=== PATIENT | female | born 1970 | race Caucasian/White ===

== ENCOUNTER 2019-08-23 08:47 | Outpatient (CLI) | payer OTHER, SELFPAY ==
--- NOTE | 2019-08-23 09:20 | NEURO_ITS ---
PATIENT NUMBER: [id number] DATE OF SERVICE: 08/23/2019 IMPRESSION: Patient complains of numbness and jumping of muscles all over. # No evidence of motor sensory neuropathy # Needle/EMG exam revealed no fasciculation, myotonia, or fibrillations. # Clinical correlation recommended. Nerve Conduction Studies Anti Sensory Summary Table Stim Site NR Peak (ms) P-T Amp (?V) Site1 Site2 Delta-P (ms) Dist (cm) Gildardo (m/s) Left Median Anti Sensory (2-3nd Digit) Wrist 2.7 133.0 Wrist 2-3nd Digit 2.7 14.0 52 Wrist 2.8 129.0 Wrist 2-3nd Digit 2.7 14.0 52 Right Median Anti Sensory (2-3nd Digit) Wrist 2.7 126.1 Wrist 2-3nd Digit 2.7 14.0 52 Wrist 2.7 132.6 Wrist 2-3nd Digit 2.7 14.0 52 Left Radial Anti Sensory (Base 1st Digit) Wrist 1.8 36.2 Wrist Base 1st Digit 1.8 0.0 Right Radial Anti Sensory (Base 1st Digit) Wrist 1.8 24.9 Wrist Base 1st Digit 1.8 0.0 Left Sup Fibular Anti Sensory (Ant Lat Mall) 14 cm 3.3 5.7 14 cm Ant Lat Mall 3.3 16.0 48 Right Sup Fibular Anti Sensory (Ant Lat Mall) 14 cm 3.1 24.4 14 cm Ant Lat Mall 3.1 16.0 52 Left Sural Anti Sensory (Lat Mall) Calf 3.8 23.9 Calf Lat Mall 3.8 16.0 42 Right Sural Anti Sensory (Lat Mall) Calf 3.9 8.4 Calf Lat Mall 3.9 16.0 41 Left Ulnar Anti Sensory (5th Digit) Wrist 2.6 129.3 Wrist 5th Digit 2.6 14.0 54 Right Ulnar Anti Sensory (5th Digit) Wrist 2.3 102.1 Wrist 5th Digit 2.3 14.0 61 Motor Summary Table Stim Site NR Onset (ms) O-P Amp (mV) Site1 Site2 Delta-0 (ms) Dist (cm) Gildardo (m/s) Left Median Motor (Abd Poll Brev) Wrist 3.2 4.3 Elbow Wrist 4.1 25.0 61 Elbow 7.3 4.4 Right Median Motor (Abd Poll Brev) Wrist 3.2 4.9 Elbow Wrist 4.1 26.0 63 Elbow 7.3 1.5 Left Peroneal Motor (Vastus Med) Ankle 4.5 8.1 Popit Ankle 7.2 36.0 50 Popit 11.7 7.8 Right Peroneal Motor (Vastus Med) Ankle 4.2 5.3 Popit Ankle 6.8 37.0 54 Popit 11.0 4.5 Left Tibial Motor (Abd Lopes Brev) Ankle 4.3 13.2 Knee Ankle 9.8 40.0 41 Knee 14.1 6.3 Right Tibial Motor (Abd Lopes Brev) Ankle 5.0 11.2 Knee Ankle 8.9 40.0 45 Knee 13.9 7.5 Left Ulnar Motor (Abd Dig Minimi) Wrist 2.2 11.1 A Elbow Wrist 4.4 26.0 59 A Elbow 6.6 9.9 Right Ulnar Motor (Abd Dig Minimi) Wrist 2.7 10.9 A Elbow Wrist 4.3 26.0 60 A Elbow 7.0 11.1 F Wave Studies NR F-Lat (ms) L-R F-Lat (ms) Left Median (Mrkrs) (Abd Poll Brev) 27.30 0.90 Right Median (Mrkrs) (Abd Poll Brev) 26.40 0.90 Left Peroneal (Mrkrs) (EDB) 49.88 4.41 Right Peroneal (Mrkrs) (EDB) 54.30 4.41 Left Tibial (Mrkrs) (Abd Hallucis) 49.15 1.91 Right Tibial (Mrkrs) (Abd Hallucis) 51.06 1.91 Left Ulnar (Mrkrs) (Abd Dig Min) 25.94 2.38 Right Ulnar (Mrkrs) (Abd Dig Min) 23.56 2.38 EMG Side Muscle Nerve Root Ins Act Fibs Amp Dur Recrt Comment Right 1stDorInt Ulnar C8-T1 Nml Nml Nml Nml Nml Right Ext Indicis Radial (Post Int) C7-8 Nml Nml Nml Nml Nml Right Ext Digitorum Radial (Post Int) C7-8 Nml Nml Nml Nml Nml Right BrachioRad Radial C5-6 Nml Nml Nml Nml Nml Right PronatorTeres Median C6-7 Nml Nml Nml Nml Nml Right Abd Poll Brev Median C8-T1 Nml Nml Nml Nml Nml Right AntTib
== END 2019-08-23 08:48 | disposition home or self-care (01) ==
PROVIDERS: PCP Family Medicine; Visit Provider Nurse Practitioner Family
DX: R20.2 Paresthesia of skin (principal)
CPT/HCPCS: 95886; 95913

== ENCOUNTER 2024-04-24 17:34 | Emergency (ER) | payer OTHER, SELFPAY ==
[2024-04-24 17:43] VITALS: BP 120/83; PULSE 75; RESP 16; TEMP 36.7; O2SAT 100
--- NOTE | 2024-04-24 17:48 | ED.SKABFB ---
HPI - Skin/Abscess/Foreign Bdy General Chief complaint: Skin/Abscess/Foreign Body Stated complaint: Bite Left Leg Source: patient Mode of arrival: ambulatory Limitations: no limitations History of Present Illness HPI narrative: [age] year old female presented for complaint of an insect bite to the left lower leg 3 days ago. She states that the onset it was red and warm which has slowly improved since then. She has taken Benadryl and Tylenol for symptoms. Today she reports the area of redness is larger, and has pain radiating up towards the knee and down to the foot in line with the bite. Related Data Home Medications Medication Instructions Recorded Confirmed fexofenadine 180 mg tablet 180 mg PO DAILY 06/28/19 12/29/23 (Adriane Allergy) acyclovir 400 mg tablet 800 mg PO Q8H 01/23/20 12/29/23 montelukast 10 mg tablet 10 mg PO DAILY 09/01/22 12/29/23 Allergies Allergy/AdvReac Type Severity Reaction Status Date / Time adhesive tape Allergy Rash Verified 12/29/23 15:03 celecoxib [From Celebrex] AdvReac Mild Dizziness Verified 12/29/23 15:03 Review of Systems Review of Systems: CONSTITUTIONAL: Denies body aches, fever, chills, or sweats. EYES: Denies visual changes, redness, or discharge. ENT: Denies rhinorrhea, congestion CARDIOVASCULAR: Denies chest pain, palpitations, or edema. RESPIRATORY: Denies cough or dyspnea. GASTROINTESTINAL: Denies abdominal pain, nausea, vomiting, or diarrhea. SKIN: per HPI MUSCULOSKELETAL: Denies back pain, joint pain, or myalgia. NEUROLOGIC: Denies headache, numbness, tingling, or weakness. 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, removed 2018 Concussion (~08/2019) Family history of hyperlipidemia Fibromyalgia Hyperlipidemia IBS (irritable bowel syndrome) Irritability Lower back pain Migraine Prediabetes Sacral pain (~02/2019) Skin infection Tingling in extremities Vitamin D deficiency Surgical History Surgical History H/O hernia repair (~2012) umbilical hernia repair x3 H/O tubal ligation (~2004) H/O vaginal hysterectomy (~2005) History of corneal transplant (~2003) History of laparoscopy (~1995) endometriosis Hx of cholecystectomy (~2010) S/P urological surgery (~2017) Family History Family History Sibling Family history of hypercholesterolemia Diabetes mellitus Mother No problems noted. 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 Please see nursing chart for further information. There is no relevant family history pertinent to the presenting complaint Exam Narrative: GENERAL: Well-appearing ENT: Mucous membranes moist. Oropharynx without edema, erythema or lesions. CHEST: Clear to auscultation. HEART: Regular rate and rhythm. SKIN: Warm, dry. Left lateral lower leg with 3cm diameter area of mild erythema, pinpoint center of erythema. Mildly tender with palpation .No fluctuance or drainage, no streaking or warmth. NEURO: Alert and oriented x3. Course Course Emergency Course: Patient is aware of diagnosis, understands and agrees to treatment plan. Anticipatory guidance given. Patient agrees to follow-up as directed and is aware of reasons to seek care at the emergency department. Portions of this record may have been created with voice recognition software Level of Care: Express Care Visit Vital Signs Vital signs: Vital Signs Temperature 98.1 F 04/24/24 17:43 Pulse Rate 75 04/24/24 17:43 Respiratory Rate 16 04/24/24 17:43 Blood Pressure 120/83 04/24/24 17:43 Pulse Oximetry 100 04/24/24 17:43 Temperature 98.1 F 04/24/24 17:43 Pulse Rate 75 04/24/24 17:43 Respiratory Rate 16 04/24/24 17:43 Blood Pressure 120/83 04/24/24 17:43 Pulse Oximetry 100 04/24/24 17:43 Reviewed MDM - Skin/Abscess/Foreign Bdy MDM Narrative Medical decision making narrative: Discussed physical exam findings. Advised supportive measures and signs/symptoms to go to the ER. Pt is appropriate for outpt treatment and f/u. Differential Diagnosis Differential diagnosis: Likely abscess of skin or subcutaneous tissue, urticaria, herpes zoster, cellulitis and contact dermatitis Discharge Plan Discharge Clinical Impression: Insect bite Patient Disposition: Home, Self-Care Condition: Stable Instructions: Antibiotic Form, Insect Bite or Sting (ED) Additional Instructions: Wash the area with gentle soap and water only. Use skin cream such as hydrocortisone, Benadryl, or calamine as needed for itching Avoid scratching when possible to prevent worsening of the condition and disruption of the skin that could lead to bacterial infection To relieve itching, place a cool washcloth or some ice over the area that itches, rather than scratching Follow up with primary care provider Go to the ER for worsening symptoms or concerns Prescriptions: No Action fexofenadine [Adriane Allergy] 180 mg tablet 180 mg PO DAILY acyclovir 400 mg tablet 800 mg PO Q8H montelukast 10 mg tablet 10 mg PO DAILY oxybutynin chloride 10 mg tablet extended release 24hr 10 mg PO DAILY Qty: 90 1RF fluoxetine 20 mg capsule 20 mg PO BID Qty: 180 1RF Rx Instructions: LAST REFILL UNTIL SEEN sumatriptan succinate 100 mg tablet See Rx Instructions .ROUTE .COMPLEX Qty: 6 1RF Dose Instruction: TAKE 1 TABLET BY MOUTH ONCE AT FIRST SIGN OF HEADACHE, MAY REPEAT 1 TABLET IN 2 HOURS IF NO IMPROVEMENT Rx Instructions: TAKE 1 TABLET BY MOUTH ONCE AT FIRST SIGN OF HEADACHE, MAY REPEAT 1 TABLET IN 2 HOURS IF NO IMPROVEMENT Follow-up/Referrals: Jacob Byrd MD [Primary Care Provider] - Time of Disposition: 17:57
== END 2024-04-24 18:03 | disposition home or self-care (01) ==
PROVIDERS: Emergency Provider Nurse Practitioner Family; PCP Family Medicine
DX: S80.862A Insect bite (nonvenomous), left lower leg, initial encounter (principal); J45.909 Unspecified asthma, uncomplicated; M79.7 Fibromyalgia; E78.5 Hyperlipidemia, unspecified; R73.03 Prediabetes; Z94.7 Corneal transplant status
CPT/HCPCS: 99211; G0463

== ENCOUNTER 2024-07-12 09:44 | Outpatient (CLI) | payer OTHER, SELFPAY ==
--- NOTE | ~2024-07-12 | XR_ITS ---
EXAM: XR lumbar spine min 4V DATE: 07/12/2024 10:14 HISTORY: M54.5 - Low back pain . COMPARISON: 02/16/2019. FINDINGS: 5 nonrib-bearing lumbar-type vertebral bodies. Pedicles intact. Stable 4 mm retrolisthesis at L5-S1. Vertebral body heights preserved. Mild multilevel disc space narrowing and osteophytosis, most pronounced at L3-4 and L5-S1. Mild facet hypertrophy and sclerosis at L4-5 and L5-S1. No fractur e or dislocation. Abandoned left sacral stimulator wire. Cholecystectomy clips. IMPRESSION: Stable mild grade 1 L5-S1 retrolisthesis. Mild multilevel degenerative disc disease and f acet arthropathy. Reviewed, dictated and finalized at location K. [employer]OR ENGRAVING IMPRESSION: Stable mild grade 1 L5-S1 retrolisthesis. Mild multilevel degenerat gem disc disease and facet arthropathy.
== END 2024-07-12 09:45 | disposition home or self-care (01) ==
PROVIDERS: PCP Family Medicine; Visit Provider Family Medicine
DX: M43.17 Spondylolisthesis, lumbosacral region (principal); M51.369 Other intervertebral disc degeneration, lumbar region without mention of lumbar back pain or lower extremity pain; M51.379 Other intervertebral disc degeneration, lumbosacral region without mention of lumbar back pain or lower extremity pain
CPT/HCPCS: 72110

== ENCOUNTER 2024-07-27 06:43 | Outpatient (CLI) | payer OTHER, SELFPAY ==
--- NOTE | ~2024-07-27 | MR_ITS ---
EXAMINATION: MR brain/brain stem wo con DATE: 07/27/2024 07:19 INDICATION: Personal history of traumatic brain injury. TECHNIQUE: Magnetic resonance imaging (MRI) of the brain and brainstem was performed without intraven ous contrast. COMPARISON: None. FINDINGS: There is an empty sella. There is no intracranial hemorrhage, acute infarction, or abnormal intracranial mass lesion. The ventricles are normal in size. There is mucosal thickening in the para nasal sinuses. The orbits are normal. The mastoid air cells are normal. IMPRESSION: 1. Empty sella. Reviewed, dictated and finalized at location [] ER WORKER HELPER IMPRESSION: 1. Empty sella.
== END 2024-07-27 06:44 | disposition home or self-care (01) ==
PROVIDERS: PCP Family Medicine; Visit Provider Family Medicine
DX: G43.001 Migraine without aura, not intractable, with status migrainosus (principal); R47.81 Slurred speech; Z87.820 Personal history of traumatic brain injury
CPT/HCPCS: 70551

== ENCOUNTER 2024-10-31 12:19 | Outpatient (CLI) | payer OTHER, SELFPAY ==
--- NOTE | ~2024-10-31 | US_ITS ---
EXAMINATION: US carotid duplex BI DATE: 10/31/2024 12:51 INDICATION: Migraines. Vertigo. TECHNIQUE: Grayscale, color Doppler, and pulsed Doppler images of the cervical carotid arteries were obtained. The degree of vessel stenosis is placed in one of the following categories: normal, <50%, 5 0-69%, >=70% but less than near-occlusion, near-occlusion, or total occlusion. Note that percent sten osis relative to normal distal artery lumen diameter is indirectly measured from velocity measurement s as described by Mitch, et al. Radiology 2003; 229:340-346. COMPARISON: None. FINDINGS: RIGHT: The right common carotid artery (CCA) peak systolic velocity (PSV) is 78 cm/s. The right internal car otid artery (ICA) PSV is 62 cm/s. The right ICA end-diastolic velocity (EDV) is 16 cm/s. The right IC A/CCA PSV ratio is 0.7. Grayscale and color Doppler images yield an estimate of <50% diameter reducti on from plaque in the ICA. The external carotid artery (ECA) PSV is 86 cm/s. There is antegrade flow in the right vertebral artery. LEFT: The left CCA PSV is 79 cm/s. The left ICA PSV is 58 cm/s. The left ICA EDV is 22 cm/s. The left ICA/C CA PSV ratio is 1.1. Grayscale and color Doppler images yield an estimate of <50% diameter reduction from plaque in the ICA. The ECA PSV is 80 cm/s. There is antegrade flow in the left vertebral artery. IMPRESSION: 1. <50% stenosis in the right internal carotid artery. 2. <50% stenosis in the left internal carotid artery. Reviewed, dictated and finalized at location A.
== END 2024-10-31 12:20 | disposition home or self-care (01) ==
LOC: MICIMG 12:19
PROVIDERS: PCP Family Medicine; Visit Provider Psychiatry & Neurology Neurology
DX: I65.23 Occlusion and stenosis of bilateral carotid arteries (principal); G43.001 Migraine without aura, not intractable, with status migrainosus; Z87.820 Personal history of traumatic brain injury
CPT/HCPCS: 93880

== ENCOUNTER 2024-12-09 10:29 | Outpatient (CLI) | payer OTHER, SELFPAY ==
--- OUTSIDE RECORDS SUMMARY | 2024-12-09 10:43 | XMS_ITS | Encounter Summary ---
Author Organization [facility] Healthcare Address [address] [place] [address] Care Team Providers Care Stripper Machine Operator Name Role Phone Katie Byrd MD Primary Care Provider Mary Cohen MD Unavailable [phone] Reason for Referral * Diagnostic Imaging (Routine) - Closed Specialty Diagnoses / Procedures Referred By Tawanna blakely Referred To Contact Diagnoses Abnormal finding on breast imaging Procedures Diagnostic Mammogram Bilateral W Elías Serna MD [address] [place] [address] Phone: tel: fax: [facility] [id number] [place] [address] Referral ID Status Reason Start Date Expiration Date Visits Re quested Visits Authorized [id number] Closed 10/24/2024 11/23/2025 1 1 Reason for Visit * Diagnostic Imaging (Routine) - Closed Specialty Diagnoses / Procedures Referred By Contcoleman t Referred To Contact Diagnoses Abnormal finding on breast imaging Procedures Diagnostic Mammogram Bilateral W Elías Serna MD [address] [place] [address] Phone: tel: fax: [facility] [address] [place] [address] Referral ID Status Reason Start Date Expiration Date Visits Re quested Visits Authorized [id number] Closed 10/24/2024 11/23/2025 1 1 Encounter Details Date Type Department Care Team (Latest Contact Info) Description 12/07/2024 10:10 AM CDT - 12/07/2024 11:59 PM CDT Hospital Encounter [facility] - Imaging [address] [place] [address] Abnormal finding on breast imaging Discharge Disposition: Discharge to home or self care Social History Tobacco Use Types Packs/Day Years Used Date Smoking Tobacco: Never Smokeless Tobacco: Never Alcohol Use Standard Drinks/Week Comments Yes 2 (1 standard drink = 0.6 oz pur e alcohol) occassionally Comments No Sex and Gender Information Value Date Recorded Sex Assigned at Not on file 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 Gender Identity Female 03/23/2019 8:53 AM CDT Sexual Orientation Not on file documented as of this encounter Last Filed Vital Signs Vital Sign Reading Time Taken Comments Blood Pressure - - Pulse - - Temperature - - Respiratory Rate - - Oxygen Saturation - - Inhaled Oxygen Concentration - - Weight 108.9 kg (240 lb) 12/07/2024 10:36 AM CDT Height 160 cm (5' 3) 12/07/2024 10:36 AM CDT Body Mass Index 42.51 12/07/2024 10:36 AM CDT documented in this encounter Medications at Time of Discharge acyclovir (ZOVIRAX) 800 mg tablet Take 1 tablet (800 mg total) by mouth 2 (two) times a day 60 tablet 11 12/25/2023 Advair HFA 230-21 mcg/actuation inhaler INHALE 2 PUFFS BY MOUTH EVERY 12 HOURS 08/08/2020 azelastine (ASTELIN) 137 mcg (0.1 %) nasal spray Administer 2 sprays into affected nostril(s) 2 (two) times a day 04/21/2018 celecoxib (CeleBREX) 100 mg capsule TK 1 C PO D 0 06/29/2019 Sara 0.075 mg/24 hr APPLY 1 PATCH TOPICALLY TO SKIN TWICE A WEEK 8 patch 09/02/[address] (CYMBALTA) 60 mg capsule TK 1 C PO Q NIGHT 03/29/2019 ergocalciferol (VITAMIN D) 50,000 unit capsule TK 1 C PO Q WEEK 0 08/04/2018 fexofenadine (ILIA) 180 mg tablet Take 1 tablet (180 mg total) by mouth daily FLUoxetine (PROzac) 20 mg capsule 08/18/2021 Guaiatussin AC 10-100 mg/5 mL liquid TAKE 10 ML BY MOUTH EVERY 4 HOURS NEEDED FOR COUGH 07/31/2020 LINZESS 145 mcg capsule Take 1 capsule (145 mcg total) by mouth intake clerk before breakfast 08/04/2017 loratadine (CLARITIN) 10 mg tablet Take 1 tablet (10 mg total) by mouth nightly LOTEMAX 0.5 % ophthalmic suspension Administer 1 drop into the left eye daily 10 mL 11 04/27/2019 meloxicam (MOBIC) 15 mg tablet Take 1 tablet (15 mg total) by mouth daily montelukast (SINGULAIR) 10 mg tablet TAKE 1 TABLET(10 MG) BY MOUTH DAILY AT BEDTIME 07/27/2019 omeprazole (PriLOSEC) 20 mg capsule Take 1 capsule (20 mg total) by mouth nightly oxybutynin XL (DITROPAN-XL) 10 mg 24 hr tablet Take 1 tablet (10 mg total) by mouth 3 (three) times a day 08/01/2017 phentermine 37.5 mg capsule TK 1 C PO QD B BREAKFAST 2 07/26/2018 predniSONE (DELTASONE) 20 mg tablet TK 3 TS PO QD 0 06/28/2018 pregabalin (LYRICA) 25 mg capsule 08/28/2019 PROAIR HFA 90 mcg/actuation inhaler Inhale 2 puffs as needed 06/26/2017 raNITIdine (ZANTAC) 150 mg tablet 2 06/28/2018 tobramycin-dexAM ETHasone (Tobradex) ophthalmic ointment APPLY 1/2 INCH IN LEFT EYE QHS 7 g 11 09/03/2021 topiramate (TOPAMAX) 25 mg tablet TK 1 T PO D 05/29/2020 Trulance 3 mg tablet Take 1 tablet (3 mg total) by mouth daily 08/03/2021 documented as of this encounter Discharge Disposition Disposition Code Departure Means Destination Discharge to home or self care documented in this encounter Plan of Treatment Not on file documented as of this encounter Procedures Procedure Name Priority Date/Time Associated Diagnosis Comments DIAGNOSTIC MAMMOGRAM BILATERAL W JONATHAN Schedule Routine, Read Routine (OP Routine) 12/07/2024 10:36 AM CDT Abnormal finding on breast imaging documented in this encounter Results * Diagnostic Mammogram Bilateral W Jonathan (12/07/2024 10:36 AM CDT) Anatomical Region Laterality Modality Breast Bilateral Mammography 12/07/2024 10:5 6 AM CDT Impressions 12/07/2024 10:56 AM CDT Overall final assessment: BI-RADS Category 1: Negative No mammographic or sonographic evidence of malignancy Electronically signed by: Amparo Oconnor M.D. Narrative 12/07/2024 10:56 AM CDT EXAM: Bilateral 3-D tomosynthesis diagnostic mammogram, limited left breast ultrasound HISTORY: Follow-up possible collapsing cyst left breast on previous sonogram. Annual mammogram COMPARISON: Left breast ultrasound and bilateral mammogram 12/16/2021, bilateral mammogram 03/10/2019 and prior FINDINGS: Bilateral 3-D tomosynthesis diagnostic mammogram and limited left breast ultrasound was performed. TISSUE DENSITY:There are scattered areas of fibroglandular density. There is no new mass, distortion or suspicious calcification in either breast. Sonography 1:00 and 9 cm from the nipple shows interval resolution of the previous cyst. No abnormality at this site is noted. Annual screening mammography is recommended. These results were conveyed to the patient at the time of the study. Elías Reid MD IMG MAMMO PROCEDURES Final Result documented in this encounter Visit Diagnoses Diagnosis Abnormal finding on breast imaging documented in this encounter Care Teams Stripper Machine Operator Relationship Specialty Start Date End Date Katie Byrd MD [address] [place], [place] [id number] PCP - General Family Practice 10/20/24 Mary Cohen MD [address] [facility] [address] [place] [address] Consulting Physician Obstetrics and Gynecology 12/07/24 documented as of this encounter
--- OUTSIDE RECORDS SUMMARY | 2024-12-09 10:43 | XMS_ITS | Referral Summary ---
Author Organization [facility] Address [address] [place] [address] Care Team Providers Care Reeling Operator Name Role Phone Katie Byrd MD Primary Care Provider Mary Cohen MD Unavailable [phone] Encounters Date Type Department Care Team Description 12/07/2024 Results [facility] [address] [place] [address] Medical Office Building [address] [place] [address] Cristal Varner NP Diagnostic Mammogram Bilateral W Jonathan 12/07/2024 10:10 AM CDT - 12/07/2024 11:59 PM CDT Hospital Encounter [facility] - Imaging [address] [place] [address] [place] [phone] Elías Reid MD Abnormal finding on breast imaging Discharge Disposition: Discharge to home or self care 12/07/2024 10:10 AM CDT - 12/07/2024 11:59 PM CDT Hospital Encounter [facility] - Imaging [address] [place] [address] [place] [phone] Abnormal finding on breast imaging Discharge Disposition: Discharge to home or self care 10/24/2024 Telephone [facility] [address] [facility] Medical Office Building [address] [place] [address] Mary Cohen MD from Last 3 Months Allergies Active Allergy Reactions Criticality Noted Date Comments Adhesive Tape-Silicones Rash Medium 09/21/2017 Medications PROAIR HFA 90 mcg/actuation inhaler Inhale 2 puffs as needed 7 Active LINZESS 145 mcg capsule Take 1 capsule (145 mcg total) by mouth ore sampler before breakfast 8 Active oxybutynin XL (DITROPAN-XL) 10 mg 24 hr tablet Take 1 tablet (10 mg total) by mouth 3 (three) times a day 8 Active omeprazole (PriLOSEC) 20 mg capsule Take 1 capsule (20 mg total) by mouth nightly Active loratadine (CLARITIN) 10 mg tablet Take 1 tablet (10 mg total) by mouth nightly Active predniSONE (DELTASONE) 20 mg tablet TK 3 TS PO QD 0 8 Active phentermine 37.5 mg capsule TK 1 C PO QD B BREAKFAST 2 9 Active ergocalciferol (VITAMIN D) 50,000 unit capsule TK 1 C PO Q WEEK 0 9 Active raNITIdine (ZANTAC) 150 mg tablet 2 8 Active LOTEMAX 0.5 % ophthalmic suspension Administer 1 drop into the left eye daily 10 mL 11 9 Active Additional Information Patient not taking.Reported on 12/17/2022 celecoxib (CeleBREX) 100 mg capsule TK 1 C PO D [address] (CYMBALTA) 60 mg capsule TK 1 C PO Q NIGHT 9 Active montelukast (SINGULAIR) 10 mg tablet TAKE 1 TABLET(10 MG) BY MOUTH DAILY AT BEDTIME 0 Active pregabalin (LYRICA) 25 mg capsule 0 Active azelastine (ASTELIN) 137 mcg (0.1 %) nasal spray Administer 2 sprays into affected nostril(s) 2 (two) times a day 8 Active fexofenadine (ILIA) 180 mg tablet Take 1 tablet (180 mg total) by mouth daily Active meloxicam (MOBIC) 15 mg tablet Take 1 tablet (15 mg total) by mouth daily Active Guaiatussin AC 10-100 mg/5 mL liquid TAKE 10 ML BY MOUTH EVERY 4 HOURS NEEDED FOR COUGH 1 Active Advair HFA 230-21 mcg/actuation inhaler INHALE 2 PUFFS BY MOUTH EVERY 12 HOURS 1 Active topiramate (TOPAMAX) 25 mg tablet TK 1 T PO D 0 Active FLUoxetine (PROzac) 20 mg capsule 2 Active Trulance 3 mg tablet Take 1 tablet (3 mg total) by mouth daily 2 Active tobramycin-dexA METHasone (Tobradex) ophthalmic ointment APPLY 1/2 INCH IN LEFT EYE QHS 7 g 11 2 Active Additional Information Patient not taking.Reported on 01/25/2024 acyclovir (ZOVIRAX) 800 mg tablet Take 1 tablet (800 mg total) by mouth 2 (two) times a day 60 tablet 11 4 Active Sara 0.075 mg/24 hr APPLY 1 PATCH TOPICALLY TO SKIN TWICE A WEEK 8 patch 5 Active Active Problems Problem Noted Date Diagnosed Date Conjunctival chalasis, 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 H/o PKP OS 2002 w/ Dr. 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 BCL did not help pain before it fell out. Patient will get Valtrex today through [employer]. If unable to get for a reasonable benjamin she will use Acylovir 800mg 5x/day instead. Plan: - Valtrex 1g TID - Vigamox 8x/day OS - Stay off of topical steroids, will resume once epi defect resolves - Call w/ worsening eye pain, redness, or decreasing vision RTC Thursday w/ Dr. Beckett, sooner prn Assessment & Plan (12/15/2019 1:58 PM CDT): No improvement after 2 days and now with HSV stromal keratitis +patient complains of significant pain; cannot keep eye open Plan: -applied BCL Extreme H20 8.5/14.2 -0.75 for comfort -cont vigamox drops [id number] -STOP emycin fady -Stop acyclovir for now; switch to Valtrex 1gram TID X 10 days -RTC tomorrow morning with Dr. 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 Prior allergic reaction to Tobradex fady. TODAY Denies any symptoms. Exam reassuring. PLAN Can start Refresh PM fady QHS OS RTC one year, sooner if any worsening Assessment & Plan (08/26/2021 3:57 PM GRAVE CLEANER): PKP OS, with Hx of floppy eyelid syndrome and possible sleep apnea with pillow case to her face at night. TODAY Irritation to tobradex ointment, with trace papillary reaction superior tarsal conj OS. PLAN Stop TD ointment, start LTX ointment at bedtime (qhs) OS RTC one year, Sooner if any worsening Assessment & Plan (02/01/2020 2:45 PM CDT): 1 mth f/u HSV stromal keratitis. H/o PKP OS 2004 w/ Dr. Sarabia Patient says her eye is completely back to normal No pain Graft clear now without ED or inflammation anterior chamber (AC) deep quiet CPM TD fady QHS OS Acyclovir 800 mg BID RTC 4-6 months Assessment & Plan (12/13/2019 4:08 PM CDT): No signs of rejection; will hold lotemax for 2 days Assessment & Plan (09/12/2019 4:55 PM GRAVE CLEANER): Clear graft, no signs of rejection Cont lotemax 2 drops (gtts) at bedtime (QHS) OS Assessment & Plan (09/01/2018 3:50 PM GRAVE CLEANER): Status post (s/p) PKP OS 2002 -doing well -recommend continue lotemax once daily OS -return precautions discussed Age-related nuclear cataract of both eyes 2018 Assessment & Plan (12/17/2022 4:01 PM CDT): +Glare but not affecting ADLs. MRx slightly changed today. Dispensed new MRx. 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 Continue Acyclovir 800 mg TID PO Assessment & Plan (08/26/2021 4:00 PM GRAVE CLEANER): Thickened/haze graft nasal likely scarring from GHI where suture was. ContinueAcyclovir 800 mg TID PO Assessment & Plan (12/26/2019 10:42 AM CDT): 1 week f/u HSV stromal keratitis. H/o PKP OS 2002 w/ Dr. Sarabia. - OS feeling better, vision improving. No more ED or dendrites No endo reactions CPM with Tobradex fady hs left eye (OS) till finish Vigamox BID OD Acyclovir 800 mg TID po RTC one month Assessment & Plan (12/19/2019 4:42 PM CDT): H/o PKP OS 2002 w/ Dr. 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 Epi defect resolved with SPEE and mild haze. Plan: - Decrease acyclovir to 800mg TID - Decrease Vigamox QID OS - Start tobradex ointment BID OS (sample given) RTC [address] Sarabia, sooner with any worsening symptoms Assessment & Plan (12/15/2019 1:56 PM CDT): Active today following recent abrasion; see plan below Assessment & Plan (09/12/2019 4:55 PM GRAVE CLEANER): Con acyclovirHSV keratitis -on acyclovir 400mg BID (increased temporarily to TID), but discussed need to only use TID during stressful times. Assessment & Plan (09/01/2018 3:52 PM GRAVE CLEANER): HSV keratitis -on acyclovir 400mg BID (increased temporarily to TID), but discussed need to only use TID during stressful times. GERD (gastroesophageal reflux disease) 8 Depression 09/21/2017 Social History Tobacco Use Types Packs/Day Years Used Date Smoking Tobacco: Never Smokeless Tobacco: Never Alcohol Use Standard Drinks/Week Comments Yes 2 (1 standard drink = 0.6 oz pur e alcohol) occassionally Comments No Sex and Gender Information Value Date Recorded Sex Assigned at Not on file Legal Sex Female 2:24 AM GRAVE CLEANER Gender Identity Female 03/23/2019 8:53 AM CDT Sexual Orientation Not on file Last Filed Vital Signs Vital Sign Reading Time Taken Comments Blood Pressure 104/82 01/25/2024 2:32 PM CDT Pulse 98 09/01/2019 1:00 PM GRAVE CLEANER Temperature 36.7 C (98.1 F) 09/01/2019 9:58 AM GRAVE CLEANER Respiratory Rate 23 09/01/2019 1:00 PM GRAVE CLEANER Oxygen Saturation 98% 09/01/2019 1:00 PM GRAVE CLEANER Inhaled Oxygen Concentration - - Weight 108.9 kg (240 lb) 12/07/2024 10:36 AM CDT Height 160 cm (5' 3) 12/07/2024 10:36 AM CDT Body Mass Index 42.51 12/07/2024 10:36 AM CDT Plan of Treatment Not on file Medical Devices Implanted Type Area Photogrammetry Airplane Pilot Device Identifier Shelf Expiration Date Model / Serial / Lot System Urethral Support Obtryx Ii Precisionblue Advantage Polypropylene Female Thk.66 Mm 1182 Um L22 Cm Od.15 Mm Midurethral Transobturator Sling Halo Needle Dilator Leg Loop Sterile Blue Stress Urinary Incontinence - [id number] Implanted:Qty: 1 on 10/06/2017 by Luis Manuel Flores MD at [facility] N/A: Urethra VocalZoom [id number] 08/02/2020 [id number] / / [id number] Procedures Procedure Name Priority Date/Time Associated Diagnosis Comments US BREAST LEFT LIMITED Schedule Routine, Read Routine (OP Routine) 12/07/2024 10:50 AM CDT Abnormal finding on breast imaging DIAGNOSTIC MAMMOGRAM BILATERAL W JONATHAN Schedule Routine, Read Routine (OP Routine) 12/07/2024 10:36 AM CDT Abnormal finding on breast imaging from Last 3 Months Results * US Breast Left Limited (12/07/2024 10:50 AM CDT) Anatomical Region Laterality Modality Breast Left Ultrasound 12/07/2024 10:5 6 AM CDT Impressions 12/07/2024 [...] Reid MD IMG MAMMO PROCEDURES Final Result * Diagnostic Mammogram Bilateral W Jonathan (12/07/2024 [...] patient at the time of the study. us Elías Reid MD IMG MAMMO PROCEDURES Final Result from Last [address] [facility] CHOICE PLUS Care Teams Reeling Operator Relationship Specialty Start Date End Date Katie Byrd MD [facility] [address] [place] [address] PCP - General Family Practice 10/20/24 Mary Cohen MD [address] [place] [address] Consulting Physician Obstetrics and Gynecology 12/07/24
--- OUTSIDE RECORDS SUMMARY | 2024-12-09 10:43 | XMS_ITS | Clinical Summary ---
Author Organization [facility] Address [address] [place] [address] Care Team Providers Care Floor Coverer Name Role Phone Katie Byrd MD Primary Care Provider Mary Cohen MD Unavailable [phone] Allergies Active Allergy Reactions Criticality Noted Date Comments Adhesive Tape-Silicones Rash Medium 09/21/2017 Medications PROAIR HFA 90 mcg/actuation inhaler Inhale 2 puffs as needed 7 Active LINZESS 145 mcg capsule Take 1 capsule (145 mcg total) by mouth cementing bulk material operator before breakfast 8 Active oxybutynin XL (DITROPAN-XL) [...] 08/20/2020 Assessment & Plan (08/20/2020 4:12 PM VEGETABLE WASHER): Hx of floppy eyelid syndrome and possible [...] out. Patient will get Valtrex today through [employer]. If unable to get for a reasonable [...] 8.5/14.2 -0.75 for comfort -cont vigamox drops [id number] -STOP emycin fady -Stop acyclovir for now; switch to Valtrex 1gram TID X 10 days -RTC tomorrow morning with Dr. 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 09/12/19 Assessment & Plan (09/12/2019 4:54 PM VEGETABLE WASHER): Physiologic anisocoria today Pt had normal CT [...] worsening Assessment & Plan (08/26/2021 3:57 PM VEGETABLE WASHER): PKP OS, with Hx of floppy eyelid [...] days Assessment & Plan (09/12/2019 4:55 PM VEGETABLE WASHER): Clear graft, no signs of rejection Cont lotemax 2 drops (gtts) at bedtime (QHS) OS Assessment & Plan (09/01/2018 3:50 PM VEGETABLE WASHER): Status post (s/p) PKP OS 2002 -doing well -recommend continue lotemax once daily OS -return precautions discussed Age-related nuclear cataract of both eyes 2018 Assessment & Plan (12/17/2022 4:01 PM CDT): +Glare but not affecting ADLs. MRx slightly changed today. Dispensed new MRx. 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 Continue Acyclovir 800 mg TID PO Assessment & Plan (08/26/2021 4:00 PM VEGETABLE WASHER): Thickened/haze graft nasal likely scarring from GHI [...] below Assessment & Plan (09/12/2019 4:55 PM VEGETABLE WASHER): Con acyclovirHSV keratitis -on acyclovir 400mg BID (increased temporarily to TID), but discussed need to only use TID during stressful times. Assessment & Plan (09/01/2018 3:52 PM VEGETABLE WASHER): HSV keratitis -on acyclovir 400mg BID (increased temporarily to TID), but discussed need to only use TID during stressful times. GERD (gastroesophageal reflux disease) 8 Depression 09/21/2017 Encounters Date Type Department Care Team Description 12/07/2024 10:10 AM CDT - 12/07/2024 11:59 PM CDT Hospital Encounter [facility] - Imaging [address] [place] [phone] Elías Reid MD Abnormal finding on breast imaging Discharge Disposition: Discharge to home or self care 12/07/2024 10:10 AM CDT - 12/07/2024 11:59 PM CDT Hospital Encounter [facility] - Imaging [address] [place] [phone] Abnormal finding on breast imaging Discharge Disposition: Discharge to home or self care 12/07/2024 Results [facility] [address] Office Building [address] [place] [phone] Cristal Varner NP Diagnostic Mammogram Bilateral W Jonathan 10/24/2024 [facility]phone [facility] [address] [place] [phone] Mary Cohen MD from Last 3 Months Surgical History Surgery Date Site/Laterality Comments LAPAROSCOPY 07/13/1995 - 07/12/1996 INSERT / REPLACE PERIPHERAL NEUROSTIMULATOR PULSE GENERATOR / ASBESTOS SHINGLE INSPECTOR 1999, 2009, 2014 InterStim devise placement and revision CORNEAL TRANSPLANT 07/13/2003 - 07/12/2004 TUBAL LIGATION 07/13/2004 - 07/12/2005 PARTIAL HYSTERECTOMY 07/13/2005 - 07/12/2006 CHOLECYSTECTOMY 07/13/2010 - 07/12/2011 HERNIA REPAIR 2012, 2016 HERNIA REPAIR Medical History Medical History Date Comments GERD (gastroesophageal reflux disease) 09/21/2017 Depression 09/21/2017 PONV (postoperative nausea and vomiting) Dyspnea Morbid obesity (HCC) Social History Tobacco Use Types Packs/Day Years Used Date Smoking Tobacco: Never Smokeless Tobacco: Never Alcohol Use Standard Drinks/Week Comments Yes 2 (1 standard drink = 0.6 oz pur e alcohol) occassionally Comments No Sex and Gender Information Value Date Recorded Sex Assigned at Not on file Legal Sex Female 2:24 AM VEGETABLE WASHER Gender Identity Female 03/23/2019 8:53 AM CDT Sexual Orientation Not on file Obstetrics History Para Term AB IAB SAB Ectopic Multiple Livin g Live Births 2 2 2 Date Outcome GA Total Labor Labor/2nd/3rd Weight Sex Type Anes PTL Olivia A1 A5 Name Clin Term Term Last Filed Vital Signs Vital Sign Reading Time Taken Comments Blood Pressure 104/82 01/25/2024 2:32 PM CDT Pulse 98 09/01/2019 1:00 PM VEGETABLE WASHER Temperature 36.7 C (98.1 F) 09/01/2019 9:58 AM VEGETABLE WASHER Respiratory Rate 23 09/01/2019 1:00 PM VEGETABLE WASHER Oxygen Saturation 98% 09/01/2019 1:00 PM VEGETABLE WASHER Inhaled Oxygen Concentration - - Weight 108.9 kg (240 lb) 12/07/2024 10:36 AM CDT Height 160 cm (5' 3) 12/07/2024 10:36 AM CDT Body Mass Index 42.51 12/07/2024 10:36 AM CDT Plan of Treatment Health Maintenance Due Date Last Done Comments Colon Cancer Screening-Colonoscopy 1971 Depression Screening 1971 Hepatitis C Screening 1971 Hepatitis B Screening 1989 Pneumococcal vaccine <65 (1 of 2 - PCV) 1990 DTaP/Tdap/Td Vaccine (2 - Td or Tdap) 11/08/2019 11/07/2009 Zoster Vaccine (1 of 2) 2021 Regular Well Visit/Exam 18-64 01/24/2025 01/25/2024 Influenza Vaccine (Season Ended) 2025 Breast Cancer Screening-Mammogram 12/07/2025 12/07/2024, 12/16/2021, 03/10/2019, Additional history exists Medical Devices Implanted Type Area Reed Fixer Device Identifier Shelf Expiration Date Model / Serial / Lot System Urethral Support Obtryx Ii Precisionblue Advantage Polypropylene Female Thk.66 Mm 1182 Um L22 Cm Od.15 Mm Midurethral Transobturator Sling Halo Needle Dilator Leg Loop Sterile Blue Stress Urinary Incontinence - [id number] Implanted:Qty: 1 on 10/06/2017 by Luis Manuel Flores MD at [facility] N/A: Urethra [employer] [id number] 08/02/2020 [id number] / / [id number] Procedures Procedure Name Priority Date/Time Associated Diagnosis [...] time of the study. Elías Reid MD [facility] MAMMO PROCEDURES Final Result * Diagnostic Mammogram [...] time of the study. Elías Reid MD [facility]ED[facility] Final Result from Last 3 Months Insurance [facility] CHOICE PLUS [facility] CHOICE PLUS Care Teams Floor Coverer Relationship Specialty Start Date End Date Katie Byrd MD [address] [facility] [address] [id number] PCP - General Family Practice 10/20/24 Mary Cohen MD [address] [facility] [address] [place] [address] Consulting Physician Obstetrics and Gynecology 12/07/24
--- OUTSIDE RECORDS SUMMARY | 2024-12-09 10:44 | XMS_ITS | Encounter Summary ---
Author Organization [facility] [facility] Address [address] [facility] [address] [place] [address] Care Team Providers Care Automotive Service Cashier Name Role Phone Katie Byrd MD Primary Care Provider Mary Cohen MD Unavailable [phone] Encounter Details Date Type Department Care Team (Late st Contact Info) Description 12/07/2024 Results [facility] [address] [facility] [address] [place] [address] Cristal Varner NP [address] [facility] [address] [place] [address] Diagnostic Mammogram Bilateral W Jonathan Social History Tobacco Use Types Packs/Day Years Used Date Smoking Tobacco: Never Smokeless Tobacco: Never Alcohol Use Standard Drinks/Week Comments Yes 2 (1 standard drink = 0.6 oz pur e alcohol) occassionally Comments No Sex and Gender Information Value Date Recorded Sex Assigned at Not on file Legal Sex Female 2:24 AM VOICE NETWORK ADMINISTRATOR Gender Identity Female 03/23/2019 8:53 AM CDT Sexual Orientation Not on file documented as of this encounter Plan of Treatment Not on file documented as of this encounter Visit Diagnoses Not on filedocumented in this encounter Care Teams Automotive Service Cashier Relationship Specialty Start Date End Date Katie Byrd MD [address] [facility] [address] [place] [address] PCP - General Family Practice 10/20/24 Mary Cohen MD [address] [facility] [address] [place] [address] Consulting Physician Obstetrics and Gynecology 12/07/24 documented as of this encounter
--- OUTSIDE RECORDS SUMMARY | 2024-12-09 10:44 | XMS_ITS | Patient Health Record ---
Author Organization [facility] Address [address] [place] [address] Support Name Relationship Address Phone Johanny Cuellar Guarantor Unknown Unavailabl e Reason For Referral No Information Medications Medication SIG (Take, Route, Frequency, Duration) Notes Start Date End Date Status Breo Ellipta 100-25 MCG/ACT inhale 1 puff by inhalation route once daily at the same time each day for 30 days Inhalation 1 for 30 10/19/2017 Active Allergy Relief *Pick strength-form from [employer] for eRX* Active predniSONE 20 MG Oral Act gem Cefuroxime Axetil 500 MG take 1 tablet (500 mg) by oral route 2 times per day for 10 days Oral 2 for 10 02/19/2018 Active Citalopram Hydrobromide 40 MG TAKE ONE TABLET BY MOUTH ONCE DAILY Oral 02/01/2018 Active Albuterol Sulfate HFA 108 (90 Base) MCG/ACT inhale 1 puff (90 mcg) by inhalation route every 6 hours as needed Inhalation 4 10/19/2017 Active Virtussin A/C 100-10 MG/5ML take 10 milliliters by oral route every 4 hours as needed Oral 6 02/19/2018 Active Lotemax 0.5 % Ophthalmic *Pick strength-form from Streamline[employer] for eRX* Active Acyclovir 400 MG take 2 tablets (800 mg) by oral route 4 times per day Oral 4 Active Multivitamin Adult (Minerals) Oral Active PriLOSEC OTC 20 MG take 1 tablet by oral route for 30 days qd Oral for 30 Active Promethazine HCl 6.25 MG/5ML take 5 milliliters (6.25 mg) by oral route 3 times per day Oral 3 Active Montelukast Sodium 10 MG TAKE 1 TABLET BY MOUTH EVERY EVENING Oral 11/07/2018 Active Problems Problem Type SNOMED Code ICD Code Onset Dates Problem Status W/U Status Risk Notes Problem Mixed hyperlipidemia (702680296) Mixed hyperlipidemia (272.2) Active confirmed Problem Herpes simplex viral infection (00302846) Herpesviral infection, unspecified (B00.9) Active confirmed including herpez in the cornea , resulting in corneal ulcer. Now on maintainence therapy with acyclovir. Problem Major depression, single episode (97115110) Major depressive disorder, single episode, unspecified (F32.9) Active confirmed Problem Allergic rhinitis (42541081) Allergic rhinitis, unspecified (J30.9) Active confirmed Problem Gastro-esophagea l reflux disease without esophagitis (024804348) Gastro-esophagea l reflux disease without esophagitis (K21.9) Active confirmed Problem Irritable bowel syndrome (12245532) Irritable bowel syndrome without diarrhea (K58.9) Active confirmed Problem Chronic interstitial cystitis (068036161) Interstitial cystitis (chronic) without hematuria (N30.10) Active confirmed Plan Of Treatment No Information Insurance Providers Payer Name Payer Address Payer Phone Subscriber Number Group Number Insured Name Patient Relationship to Insured Coverage Start Date Coverage End Date DO NOT USE [id number] Johanny Cuellar Self - patient is the insured 3 Medical (General) History Surgical History Surgery Date(Month/Year) corneal transplant, Date of Procedure: ; 2013-04-06 Gallbladder Removed, Date of Procedure: 2011; 2013-04-06 HYSTERECTOMY (PARTIAL), Date of Procedur e: 2004; 2013-04-06 Bladder Surgery: stimulator , battery replaced in 2014 , Date of Procedure: 1999; 2013-04-06 Hernia Repair: mendy newton repair with ventral hernia repair. ; 2014-10-09 ventral hernia, Date of Procedure: ; 2014-10-09
--- OUTSIDE RECORDS SUMMARY | 2024-12-09 10:44 | XMS_ITS | Encounter Summary ---
Author Organization [facility] Address [address] [place] [address] Care Team Providers Care Hospital Wellness Coordinator Name Role Phone Katie Byrd MD Primary Care Provider Mary Cohen MD Unavailable [phone] Reason for Referral * Diagnostic Imaging (Routine) - Closed Specialty Diagnoses / Procedures [facility] Referred To Contact Diagnoses Abnormal finding on breast imaging Procedures US Breast Left Limited Elías Reid MD [address] [place] [address] Phone: tel: fax: [facility] [address] [place] [address] Referral ID Status Reason Start Date Expiration Date Visits Re quested Visits Authorized [id number] Closed 10/24/2024 11/23/2025 1 1 Reason for Visit * Diagnostic Imaging (Routine) - Closed Specialty Diagnoses / Procedures [facility]erred [facility] Referred To Contact Diagnoses Abnormal finding on breast imaging Procedures US Breast Left Limited Elías Reid MD [address] [place] [address] Phone: tel: fax: [facility] [address] [place] [address] Referral ID Status Reason Start Date Expiration Date Visits Re quested Visits Authorized [id number] Closed 10/24/2024 11/23/2025 1 1 Encounter Details Date Type Department Care Team (Latest Contact Info) Description 12/07/2024 10:10 AM CDT - 12/07/2024 11:59 PM CDT Hospital Encounter [facility] - Imaging [address] [place] [address] Elías Reid MD [address] [facility] [address] [place] [address] Abnormal finding on breast imaging Discharge Disposition: [...] on file 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 Gender Identity Female 03/23/2019 8:53 AM CDT Sexual Orientation Not on file documented as of this encounter Medications at Time of Discharge [...] 1 capsule (145 mcg total) by mouth verify rep before breakfast 08/04/2017 loratadine (CLARITIN) 10 mg [...] imaging documented in this encounter Results * US Breast Left Limited (12/07/2024 [...] imaging documented in this encounter Care Teams Hospital Wellness Coordinator Relationship Specialty Start Date End Date Katie Byrd MD [address] [place] [address] PCP - General Family Practice 10/20/24 Mary Cohen MD [address] [place] [address] Consulting Physician Obstetrics and Gynecology 12/07/24 documented as of this encounter
--- OUTSIDE RECORDS SUMMARY | 2024-12-09 10:44 | XMS_ITS | Clinical Summary ---
Author Organization [facility] Address [address] [place] [address] Care Team Providers Care Air Quality Chemist Name Role Phone Unavailable Primary Care Provider Unavailabl e Source Comments [facility],non-owned Affiliates and Associated Physician Practices is amultiple site organization consisting of ambulatory clinics and hospital sitesin [place], [place], [place] and [place]. This disclosure is being madepursuant to the Care Everywhere program and may not contain all information available regarding this patient. Last updated 18.[facility] Medications * Be aware that medications may not be up to date on this document. Alwaysverify current medications with the patient. loratadine (CLARITIN) 10 MG tablet Take 10 mg by mouth DAILY. 09/08/2017 Active citalopram (CELEXA) 10 MG tablet Take 3 mg by mouth DAILY. 09/08/2017 Active acyclovir (ZOVIRAX) 200 MG capsule Take 400 mg by mouth 4X/day. 09/08/2017 Active omeprazole (PRILOSEC) 20 MG capsule Take 20 mg by mouth DAILY. 09/08/2017 Active oxybutynin (DITROPAN) 5 MG tablet Take 10 mg by mouth TID. 09/08/2017 Active Active Problems Problem Noted Date Diagnosed Date Chest pain 09/08/2017 Social History Tobacco Use Types Packs/Day Years Used Date Smoking Tobacco: Never Smokeless Tobacco: Never Alcohol Use Standard Drinks/Week Comments Yes 0 (1 standard drink = 0.6 oz pur e alcohol) Comments Unknown Sex and Gender Information Value Date Recorded Sex Assigned at Female 09/18/2020 9:10 PM LOGGING ENGINEER Legal Sex Female 6:00 PM CDT Gender Identity Female 09/18/2020 9:10 PM LOGGING ENGINEER Sexual Orientation Not on file Last Filed Vital Signs Vital Sign Reading Time Taken Comments Blood Pressure 111/71 09/08/2017 8:30 PM LOGGING ENGINEER Pulse 84 09/08/2017 8:30 PM LOGGING ENGINEER Temperature 36.8 C (98.3 F) 09/08/2017 8:30 PM LOGGING ENGINEER Respiratory Rate 18 09/08/2017 8:30 PM LOGGING ENGINEER Oxygen Saturation 98% 09/08/2017 8:30 PM LOGGING ENGINEER Inhaled Oxygen Concentration - - Weight 102.1 kg (225 lb) 09/08/2017 2:46 PM LOGGING ENGINEER Height 160 cm (5' 3) 09/08/2017 2:46 PM LOGGING ENGINEER Body Mass Index 39.86 09/08/2017 2:46 PM LOGGING ENGINEER Plan of Treatment Health Maintenance Due Date Last Done Comments COLOGUARD (AGES 45-75) - COL ON CA SCREENING 1971 COLON MONITORING 1971 COLONOSCOPY - COLON CA SCREENING 1971 CT COLONOGRAPHY - COLON CA SCREENING 1971 Colorectal Cancer Screening 1971 FIT - COLON CA SCREENING 1971 FLEX SIG - COLON CA SCREENING 1971 LIPID TESTING 1971 MAMMOGRAM 1971 HIV SCREENING 1986 HEPATITIS C SCREENING 07/23/1989 DTAP/TDAP/TD VACCINES (1 - Tdap) 1990 HEPATITIS B VACCINE (1 of 3 - 19+ 3-dose series) 1990 PNEUMOCOCCAL VACCINE 50+ (1 of 1 - PCV) 2021 ZOSTER VACCINE (1 of 2) 2021 COVID-19 VACCINE ( - 2023-2 5 season) 2024 DEPRESSION SCREENING 07/13/2024 INFLUENZA VACCINE (Season Ended) 2025 HIB VACCINE Aged Out No longer eligi ble based on patient's age to complete this topic HPV VACCINE Aged Out No longer eligi ble based on patient's age to complete this topic MENINGOCOCCAL (Group B) VACC INE SHARED DECISION-MAKING Aged Out No longer eligibl e based on patient's age to complete this topic MENINGOCOCCAL GROUPS A/C/Y/W VACCINE Aged Out No longer eligible b ased on patient's age to complete this topic
--- OUTSIDE RECORDS SUMMARY | 2024-12-09 10:44 | XMS_ITS | Clinical Summary ---
Author Organization [facility] Address [address] [place] [address] Care Team Providers Care Photograph Mounter Name Role Phone Charlotte Bello MD Primary Care Provi dionicio Allergies No known active allergies Medications oxybutynin chloride (DITROPAN XL) 10 mg Extended Release 24 hour tablet Take 1 Tablet by mouth 1 time daily as needed. 12 8 Active acyclovir (ZOVIRAX) 400 mg tablet Take 1 Tablet by mouth 3 times daily before meals. 1 8 Active omeprazole (PriLOSEC) 40 mg Capsule, Delayed Release(E.C.) Take 40 mg by mouth daily. Active fexofenadine HCl (ILIA ORAL) Take 1 Tablet by mouth daily at bedtime. Active mv-mn/C/glutamin /lysin/efbm148 (AIRBORNE, ASCORBATE SODIUM, ORAL) Take 1 Tablet by mouth daily. Active inhalat.spacing dev,large mask (OPTICHAMBER MATT LG MASK) Spacer USE WITH HFA INHALERS. 1 Each 9 Active codeine-guaiFENe sin (Cheratussin AC) 10-100 mg/5 mL LiquidIndication s:Cough, unspecified type Take 10 mL by mouth every 6 hours as needed for Cough. 240 mL 2 Active codeine-guaiFENe sin (ROBITUSSIN-AC) 10-100 mg/5 mL LiquidIndication s:Cough, unspecified type TAKE 10 ML BY MOUTH EVERY 4 HOURS NEEDED FOR COUGH 180 mL 4 Active azelastine (ASTELIN) 137 mcg/actuation nasal spray Administer 2 Sprays in each nostril 2 times daily. 30 mL 2 4 Active FLUoxetine (PROzac) 20 mg capsule Take 20 mg by mouth 2 times daily. Active rosuvastatin (CRESTOR) 20 mg tablet Take 20 mg by mouth daily at bedtime. 4 Active montelukast (SINGULAIR) 10 mg tablet Take 1 Tablet (10 mg) by mouth daily. 30 Tablet 11 4 Active albuterol sulfate HFA 90 mcg/actuation aerosol inhaler Take 2 Puffs by inhalation every 6 hours as needed for Shortness of Breath. 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 Obesity 11/07/2009 Depression 11/07/2009 Allergic rhinitis 11/07/2009 Heartburn 11/07/2009 Sweating 11/07/2009 S/P partial hysterectomy 11/07/2009 Overview (11/07/2009): Ovaries left intact, for fibroids Interstitial cystitis Encounters Date Type Department Care Team Description 12/06/2024 External Device Data [facility] ABSTRACTION Provider, Abstract 11/30/2024 External Device Data [facility] ABSTRACTION Provider, Abstract 11/29/2024 External Device Data [facility] ABSTRACTION Provider, Abstract 11/15/2024 External Device Data [facility] ABSTRACTION Provider, Abstract 09/28/2024 External Device Data [facility] ABSTRACTION Provider, Abstract 09/21/2024 External Device Data [facility] ABSTRACTION Provider, Abstract 09/20/2024 External Device Data [facility] ABSTRACTION Provider, Abstract 09/17/2024 External Device Data [facility] ABSTRACTION Provider, Abstract 09/16/2024 External Device Data [facility] ABSTRACTION Provider, Abstract 09/14/2024 External Device Data [facility] ABSTRACTION Provider, Abstract from Last 3 Months Immunizations Immunization Administration Dates Next Due (ADACEL/BOOSTRIX)(10 YR UP) TDAP VACCINE, 0.5ML, IM 11/07/2009 Family History Medical History Relation Name Comments Diabetes Brother 1 High Cholesterol Brother 1 Hypertension Brother 1 High Cholesterol Brother 2 Hypertension Brother 2 Healthy Brother 3 Heart Disease Father Diabetes Sister 1 High Cholesterol Sister 1 Hypertension Sister 1 Healthy Sister 2 Cancer Neg Hx Relation Name Status Comments Brother 1 Alive Brother 2 Alive Brother 3 Alive Father Alive Mother Alive Sister 1 Alive Sister 2 Alive Social History Tobacco Use Types Packs/Day Years Used Date Smoking Tobacco: Never Smokeless Tobacco: Never Tobacco Cessation:Counseling Given: Not Answered Alcohol Use Standard Drinks/Week Comments No 0 (1 standard drink = 0.6 oz pur e alcohol) Comments Unknown Sex and Gender Information Value Date Recorded Sex Assigned at Not on file Legal 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 Gender Identity Not on file Sexual Orientation Not on file 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 Not on file Not on file Last Filed Vital Signs Vital Sign Reading Time Taken Comments Blood Pressure 112/90 07/11/2024 2:29 PM CRACKER AND COOKIE MACHINE 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 Pulse 95 07/11/2024 2:29 PM CRACKER AND COOKIE MACHINE OPERATOR Temperature - - Respiratory Rate 16 10/03/2020 3:48 PM CDT Oxygen Saturation 98% 07/11/2024 2:29 PM CRACKER AND COOKIE MACHINE OPERATOR Inhaled Oxygen Concentration - - Weight 105.1 kg (231 lb 9.6 oz) 07/11/2024 2:29 PM CRACKER AND COOKIE MACHINE OPERATOR Height 160 cm (5' 3) 07/11/2024 2:29 PM CRACKER AND COOKIE MACHINE OPERATOR Body Mass Index 41.03 07/11/2024 2:29 PM CRACKER AND COOKIE MACHINE OPERATOR Plan of Treatment Upcoming Encounters Date Type Department Care Team (Late st Contact Info) Description 07/03/2025 2:45 PM CRACKER AND COOKIE MACHINE OPERATOR Office Visit [facility] [place] [facility] [address] [place] [id number] Dano Ibanez MD [address] [place] [address] Health Maintenance Due Date Last Done Comments Pre-Diabetes and Diabetes Screening 1971 HEPATITIS B VACCINES (1 of 3 - 19+ 3-dose series) 1990 COLORECTAL SCREENING 2016 Colorectal Cancer Screening 2016 FIT-DNA Q 3 years 2016 FIT/FOBT Q 1 year 2016 Flex Sig/CT Colonography Q 5 years 2016 DTAP/TDAP/TD VACCINES (2 - T d or Tdap) 11/08/2019 11/07/2009 ZOSTER VACCINE (1 of 2) 2021 BREAST CANCER SCREENING 12/16/2022 12/17/19 22, 03/10/2019, 03/10/2019, Additional history exists INFLUENZA VACCINE (#1) 2024 Insurance [facility] [employer] [id number] Care Teams Photograph Mounter Relationship Specialty Start Date End Date Charlotte Bello MD PCP - General Family Practice 12/11/09
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
== END 2024-12-09 10:30 | disposition home or self-care (01) ==
PROVIDERS: PCP Family Medicine; Visit Provider Psychiatry & Neurology Neurology
DX: Z87.828 Personal history of other (healed) physical injury and trauma (principal)
CPT/HCPCS: 95816

== ENCOUNTER 2025-01-16 10:00 | Outpatient (CLI) | payer OTHER, SELFPAY | END 2025-01-16 10:01 | disposition home or self-care (01) | LOC: GOSHIMG 10:01 | PROVIDERS: PCP Family Medicine; Visit Provider Family Medicine | DX: M25.561 Pain in right knee (principal) | CPT/HCPCS: 73564 ==